=== PATIENT | male | born 1940 | race Caucasian/White ===

== ENCOUNTER → 2016-07-26 | Outpatient (CLI) | payer MEDICARE ==
[~2016-07-26] MED LIST: DOCUSATE PO; DOCUSATE SODIU100 M2 PO; KEFTAB500 MG PO; LAXATIVE1 TAB PO; PRILOSEC40 MG PO; [UNRECOGNIZED DRUG - OTHER]
[2016-07-26 15:28] LABS: BUN 24 mg/dl (7-24); CARBON DIOXIDE 28 mmol/L (21-32); CHLORIDE 106 mmol/L (98-107); EST GLOM FILT AFRICAN AMERICAN > 60 ml/min; GLUCOSE 87 mg/dL (65-99); POTASSIUM 4.1 mmol/L (3.5-5.1); SODIUM 142 mmol/L (136-145); URIC ACID 7.1 mg/dL (3.5-7.2)
== END | disposition home or self-care (01) ==
LOC: LAB 14:32
PROVIDERS: Family Medicine
DX: M10.9 Gout, unspecified (principal)

== ENCOUNTER 2016-10-31 16:42 | Emergency (ER) | payer MEDICARE ==
[~2016-10-31] VITALS: Ht 180.3 cm; Wt 97.1 kg
[~2016-10-31 16:42] MED LIST changes: -BACITRACIN 500U30 GM OPH; -KEFLEX500 M1 PO; -LISINOPRIL5 MG PO; -Meclizine25 MG PO
[2016-10-31 17:49] LABS: BASO # 0.1 10*3/uL (0.0-0.1); BASO % 0.7 % (0.0-1.0); EOS # 0.3 10*3/uL (0.0-0.4); EOS % 2.7 % (1.0-4.0); HEMATOCRIT 47.1 % (42.0-52.0); HEMOGLOBIN 15.7 g/dl (14.0-18.0); LYMPH # 1.3 10*3/uL (1.3-4.4); LYMPH % 12.5 % (27.0-41.0); MEAN CELL VOLUME 90.1 fl (80.0-94.0); MEAN CORPUSCULAR HGB CONC 33.3 g/dl (33.0-37.0); MEAN PLATELET VOLUME 9.6 fl (9.6-12.3); MONO # 0.8 10*3/uL (0.1-1.0); MONO % 7.7 % (3.0-9.0); NEUT # 7.9 10*3/uL (2.3-7.9); NEUT % 76.1 % (47.0-73.0); PLATELET COUNT AUTOMATED 274 10*3/uL (130-400); RED BLOOD COUNT 5.23 10*6/uL (4.50-5.90); RED CELL DISTRI WIDTH 13.2 % (0-14.5); WHITE BLOOD COUNT 10.4 10*3/uL (4.8-10.8)
[2016-10-31 18:01] LABS: BUN 17 mg/dl (7-24); CHLORIDE 105 mmol/L (98-107); CREATININE 1.05 mg/dL (0.70-1.30); POTASSIUM 4.3 mmol/L (3.5-5.1); SODIUM 141 mmol/L (136-145)
[2016-10-31] MEDS ORDERED: KEFLEX500 M1 PO (19:20)
[2016-10-31] MEDS ORDERED: LISINOPRIL5 MG PO (19:20)
[2016-10-31] MEDS ORDERED: BACITRACIN 500U30 GM OPH (19:20)
[2016-10-31] MEDS ORDERED: Meclizine25 MG PO (19:20)
== END 2016-10-31 19:24 | disposition home or self-care (01) ==
LOC: ED 16:42
PROVIDERS: Emergency Medicine
DX: R42 Dizziness and giddiness (principal); I10 Essential (primary) hypertension; L97.312 Non-pressure chronic ulcer of right ankle with fat layer exposed; Z98.890 Other specified postprocedural states; Z79.899 Other long term (current) drug therapy; Z88.1 Allergy status to other antibiotic agents; Z96.661 Presence of right artificial ankle joint

== ENCOUNTER → 2016-10-31 | Outpatient (CLI) | payer MEDICARE ==
[~2016-10-31] MED LIST changes: +BACITRACIN 500U30 GM OPH; +KEFLEX500 M1 PO; +LISINOPRIL5 MG PO; +Meclizine25 MG PO
== END | disposition home or self-care (01) ==
LOC: LAB 16:46
DX: L97.319 Non-pressure chronic ulcer of right ankle with unspecified severity (principal)

== ENCOUNTER → 2016-11-01 | Outpatient (CLI) | payer MEDICARE ==
[~2016-11-01] MED LIST changes: +BACITRACIN 500U30 GM OPH; +KEFLEX500 M1 PO; +LISINOPRIL5 MG PO; +Meclizine25 MG PO
== END | disposition home or self-care (01) ==
LOC: US 11:20
DX: R09.89 Other specified symptoms and signs involving the circulatory and respiratory systems (principal); L89.90 Pressure ulcer of unspecified site, unspecified stage

== ENCOUNTER → 2016-11-06 | Outpatient (CLI) | payer MEDICARE ==
--- NOTE | ~2016-11-06 | PR ---
[place], [place] PROGRESS NOTE NAME: PRADEEP HERNANDEZ [facility] #: [id number] UNIT #: [id number] ROOM: DOCTOR: NABIL RojasBEVERLY BIRTHDATE: [birth year] DOS: 11/06/2016 CHIEF COMPLAINT: Nonhealing wound of the right ankle. HISTORY OF PRESENT ILLNESS: This is a 76-year-old male who was referred to us from the Emergency Room Department for nonhealing ulcers of his ankles. Apparently, he has had these wounds located. There are three wounds that have been present for at least 6 weeks, possibly more that are located on the medial ankle and lateral ankle and there is one starting right on the dorsal aspect of the ankle. They just came up on their own that were not associated with any kind of trauma that he is aware of. He does have a history of ankle surgery. He has had two ankle surgeries done, most recently was seen by Dr. Garibay who did the second surgery, and per Dr. Garibay, the orthopedic part of the surgery is good and he did not have any reason from his standpoint that there would be wounds there on the ankle area. He did have a workup that included an arterial Doppler that was done which did show an occlusion of the dorsalis pedis artery in the dorsum of the right foot with some flow demonstrated in the anterior tibial artery more approximately; however, there was other than that, there was no other occlusions noted on the arterial Doppler. He does have a vascular appointment set up with Dr. Lee 11/15/2016 I believe to further work this issue up. He also was treated empirically in the Emergency Room Department with Keflex. He did say that he had noticed some redness around these wounds and he states since the antibiotics have been started, the redness is decreased and the wounds do appear to be a little bit smaller. He also has been using Bacitracin for the wounds at the present time. His workup in the Emergency Room included an ankle x-ray which showed postsurgical changes in the ankle with no evidence of an acute fracture or dislocation, vascular calcifications were noted. There was a small plantar calcaneal spur noted as well. He did have a culture done, which was skin frances. PAST MEDICAL HISTORY: Significant for hypertension, which apparently is uncontrolled. He has never had any problems with nonhealing ulcers before, he is not diabetic. He has had a history of dizziness. Right ankle surgery in 2014 with revision: Infection in 2012 and bilateral hand surgery. He does not have any cardiac history that he is aware of. No history of heart failure or emphysema and no history of MA that he is aware of. FAMILY HISTORY: Significant for cancer in the mother and father, lung disease in his father. SOCIAL HISTORY: He is a former smoker. He quit 15 years ago, but had smoked for possibly up to 30 years, more than a pack a day. He is . He drinks wine on rare occasions. No history of drug abuse. ALLERGIES: To ciprofloxacin. MEDICATIONS: That he is on are as follows, meclizine 25 p.o. t.i.d. p.r.n. for dizziness, Lisinopril 5 mg p.o. daily. He is completing a course of Keflex 500 t.i.d. for 10 days and he is on bacitracin ointment for his wounds. [place], [place] PROGRESS NOTE NAME: PRADEEP HERNANDEZ UNIT #: [id number] ROOM: DOCTOR: BEVERLY FERRER M.D. BIRTHDATE: [birth year] REVIEW OF SYSTEMS: He denies any chest pain, shortness of breath, problems with the antibiotics, nausea or vomiting, diarrhea, abdominal pain. He states the wounds really do not cause discomfort at this time even when they are dressed. He is not complaining of any discomfort or pain. He does not think the rubbing against anything. There is really no drainage. He is able to walk on his ankle and move his ankle about. No chest pain or shortness of breath is noted. No fevers or chills are noted. PHYSICAL EXAMINATION: VITAL SIGNS: Temperature is 97.8, pulse is 62, respirations 16, blood pressure is 118/72. GENERAL: This is a well-developed, well-nourished male in no acute distress, who appears younger than his stated age. HEENT: Normocephalic, atraumatic. Extraocular movements are intact. Sclerae are anicteric. Oropharynx is clear. NECK: Supple. LUNGS: Clear to auscultation bilaterally. CARDIOVASCULAR: S1, S2. Regular rate and rhythm. ABDOMEN: Soft and nontender. EXTREMITIES: He has trace edema of the right ankle. There is no calf tenderness. I am unable to really palpate a pulse on the right lower extremity on the foot or dorsalis pedis and posterior tibial are difficult to feel. Left pedal pulses are palpable. Toes are slightly cool. Capillary refill is less than 3 seconds. He did have an ABDIAZIZ done today, which shows a critical ABDIAZIZ of 0.25 on the right side and 0.4 on the left. He does have 2 actual open area, one is on the right lateral ankle and it is measuring 0.7 x 0.9 x 0.2. There is really no overt necrotic tissue. The wound edges are slightly thickened and fibrotic. The medial wound is measuring 0.9 x 0.5 x 0.2 and there is no overt necrotic tissue that is really not painful or tender to touch and there wound base is actually pretty dry and knees are fairly circular in nature. There is an area on the dorsal aspect of the ankle, which is along a previous surgical scar and is measuring 0.1 x 0.1 x 0.1. It is not actually overtly open but it does look to be at risk for breakdown. No debridement was done today. The patient did have lab work done while he was in the Emergency Room Department, which shows a glucose of 96, BUN of 17 and creatinine of 1.05. Sodium 141, potassium 4.3, bicarbonate was 26. White count is 10.4, hemoglobin is 15 and platelets are 274. 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 The patient is going to go and see Dr. Lee for further workup, so we will wait until he is seen Dr. Lee for further management. At this time, I would like to use collagen for now. No aggressive debridement until further vascular workup is completed and use collagen for the 2 open areas, and for the area that looks to be at risk, I would like just to use Betadine and keep it covered with a dry dressing and protected, also I do not believe if this has anything to do with the previous ankle surgery; however, due to the chronicity, no open wounds that he is for several weeks now. I would like to go ahead and get a bone scan to evaluate for any possible osteomyelitis if that has been ordered. Followup is in one week. [place], [place] PROGRESS NOTE NAME: PRADEEP HERNANDEZ UNIT #: [id number] ROOM: DOCTOR: BEVERLY FERRER M.D. BIRTHDATE: [birth year] BEVERLY FERRER MD CM:JUANA [phone] BEVERLY FERRER M.D. 11/07/16 0119 interface
== END | disposition home or self-care (01) ==
LOC: WOUNDCARE 03:44
DX: L97.312 Non-pressure chronic ulcer of right ankle with fat layer exposed (principal); I73.9 Peripheral vascular disease, unspecified; I10 Essential (primary) hypertension; Z87.891 Personal history of nicotine dependence; Z72.89 Other problems related to lifestyle

== ENCOUNTER → 2016-11-08 | Outpatient (CLI) | payer MEDICARE | END | disposition home or self-care (01) | LOC: NM 00:16 | DX: L97.909 Non-pressure chronic ulcer of unspecified part of unspecified lower leg with unspecified severity (principal); M86.9 Osteomyelitis, unspecified ==

== ENCOUNTER → 2016-11-13 | Outpatient (CLI) | payer MEDICARE ==
--- NOTE | ~2016-11-13 | PR ---
[place], [place] PROGRESS NOTE NAME: PRADEEP HERNANDEZ [facility] #: [id number] UNIT #: [id number] ROOM: DOCTOR: NABIL RojasBEVERLY BIRTHDATE: [birth year] DOS: 11/13/2016 CHIEF COMPLAINT: Multiple wounds of the right ankle. HISTORY OF PRESENT ILLNESS: This is a 76-year-old gentleman who was seen for the first time in the Wound Clinic last week with open ulcers of the right ankle. They have been present for approximately 7 weeks now. They are all located on the medial ankle and the lateral ankle. The patient has had a history of a complicated ankle surgery. Apparently at least four surgical procedures were done by Dr. Garibay. The last one being in 2013. So he has not had any recent surgical interventions done of the right ankle. In any case, he also had a workup done that included an ultrasound which shows no flow in the dorsalis pedis artery in the dorsum of the right foot, with flow demonstrated in the anterior tibial artery in our clinic was 0.25 on the right side and 0.4 on the left. Last week, when we saw him, the wounds appeared fairly clean and there were two open areas with some depth still and one just starting to open up on the medial dorsum of the foot near the surgical scar and we had recommended a collagen dressing for the two open areas and to keep the medial part of the ankle dry with Betadine. He did undergo a bone scan which essentially was nonspecific. It did show increased uptake in all 3 phases of the lateral aspect of the bone-prosthetic interface of the right talar dome multiple etiologies were suggested per Radiology notes and they had recommended to try considering a tagged WBC scan with combination of bone marrow scan to minimize false positive, but the patient comes in today without any specific complaints. No pain, no fever, no chills, minimal drainage. He is able to walk on the ankle. He has not had any new complaints regarding the wound. OBJECTIVE: VITAL SIGNS: Shows a temperature of 98.1, pulse of 60, respirations 18, blood pressure is 126/60. The wound on his right lateral ankle is measuring bigger at 1 x 1.1 x 0.2, but however now there is a moderate amount of fibrin slough present in the base of the wound where it was not really noted last time the medial dorsum of the foot area is still closed, but appears to be at risk of opening and 0.1 x 0.1 x 0.1. The lateral aspect of the wound is measuring 0.9 x 0.8 x 0.2, filled with fibrin and slough. The right medial wound is measuring 1 x 1.1 x 0.2. Due to the presence of devitalized tissue, a selective debridement was done just to remove the fibrin slough. Minimal debridement only. Forceps and scissors were utilized. There was really no bleeding. The patient tolerated the procedure well. The patient denied any pain with the procedure. Cetacaine spray was used for topical anesthesia. Post-debridement measurements are unchanged. This is the right medial and right lateral lower leg wound. They are a little bit larger with the wound on the right lateral leg, which is measuring 1 x 0.9 x 0.2 post-debridement. ASSESSMENT AND PLAN: Open wounds of the right ankle in a patient with vascular disease, likely these are arterial insufficiency ulcerations. Right now, I would like to switch to Santyl and a foam dressing. He did not like the gauze as it slipped around on his foot. So we will use the foam and also would like Maxorb to keep it dry. There was a little bit of maceration around the cheryle-wound noted. So, we will use Maxorb as well for the central wound, which [place], [place] PROGRESS NOTE NAME: PRADEEP HERNANDEZ UNIT #: [id number] ROOM: DOCTOR: BEVERLY FERRER M.D. BIRTHDATE: [birth year] is at risk, but not actually opened yet and I would like to keep it dry with Betadine. We will go ahead and order the scan suggested by Radiology, which was a tagged WBC scan with bone marrow scan to minimize false positive study. So we will go ahead and order that study. In the meantime, the patient has a followup appointment with Dr. Lee in 2 days. Hopefully, we will get further answers regarding his vascular status by then. BEVERLY FERRER MD CM:PNTRANS [id number] BEVERLY FERRER M.D. 11/15/16 1313 interface
== END | disposition home or self-care (01) ==
LOC: WOUNDCARE 03:13
DX: L97.312 Non-pressure chronic ulcer of right ankle with fat layer exposed (principal); I73.9 Peripheral vascular disease, unspecified

== ENCOUNTER → 2016-11-19 | Outpatient (CLI) | payer MEDICARE ==
--- NOTE | ~2016-11-19 | PR ---
[place], [place] PROGRESS NOTE NAME: PRADEEP HERNANDEZ UNIT #: [id number] ROOM: DOCTOR: NABIL Rojas,BEVERLY BIRTHDATE: [birth year] DOS: 11/20/2016 We did fax the reports Dr. Garibay's office and had informed about this scheduled MRI; however, Dr. Garibay had informed the patient that he has too much hardware in the ankle area and thus should not get the MRI. So, we will go ahead and cancel the MRI and we will reevaluate the patient in the Wound Clinic. He will be seen by another physician the next time he is here for further management. I would also suggest to consider repeating ESR and CRP that week as well. BEVERLY FERRER MD CM:JUANA [phone] BEVERLY FERRER M.D. 11/21/16 0329 interface
--- NOTE | ~2016-11-19 | PR ---
[place], [place] PROGRESS NOTE NAME: PRADEEP HERNANDEZ [facility] #: [id number] UNIT #: [id number] ROOM: DOCTOR: NABIL RojasBEVERLY BIRTHDATE: [birth year] DOS: 11/19/2016 CHIEF COMPLAINT: Followup multiple wounds of the right ankle. HISTORY OF PRESENT ILLNESS: A 76-year-old gentleman with a history of peripheral vascular disease, was seen in the Wound Clinic 2 times now for open ulcers of the medial and lateral ankle and one starting on the central part of the ankle. He unfortunately was to be scheduled to see Dr. Lee last week. Unfortunately, that was canceled per Dr. Lee's office and he has rescheduled to see him this week on the , which would be tomorrow. He is also undergoing a workup for possible osteomyelitis. The patient has had multiple ankle procedures done by Dr. Garibay and the imaging study is still have not been read. He had a very low ABDIAZIZ when he came in to our clinic of 0.25. Due to the obvious fibrin slough present in the base of the wound, Santyl has been ordered. Initially, we had tried collagen but that was switched right away to Santyl when necrotic tissue started to be noted. The patient comes in today without any specific complaints. There is very little drainage. He is using the Santyl and a foam dressing. There is no pain, fevers or chills. OBJECTIVE: VITAL SIGNS: Stable. Temperature is 97.9, pulse of 60, respirations 18, blood pressure is 144/80. SKIN: The wound is measuring 0.8 x 1.2 x 0.2 that is the lateral wound and there is still some fibrin slough present in the base of the wound, a fair amount actually. There is no surrounding cellulitis or purulence noted. No tenderness at all. The midline wound remains closed 0.1 x 0.1 x 0.1. The medial wound is slightly bigger at 1 x 0.8 x 0.2. There is still a moderate amount of fibrin slough present. A selective debridement was done of both the medial and lateral wound, just to remove devitalized tissue only, fibrin and slough. There was no bleeding. A curette was utilized. Post-debridement measurements are unchanged. The patient tolerated the procedure well. Cetacaine spray was used for topical anesthesia. ASSESSMENT AND PLAN: Likely vascular ulceration of the right ankle. We will continue with collagenase for now and a foam dressing. Have him follow up in Wound Clinic next week and also follow up the imaging studies to further evaluate for any possible deep-seated infection. The patient is going to be seen by Vascular tomorrow. Hopefully, a vascular intervention can be done to improve the flow to the area. ADDENDUM We did get the results of the tagged WBC scan. The order was written exactly as how Radiology had recommended, which was to do a combination of a tagged WBC and bone marrow scan with sulfur colloid to minimize false positive study. This was written exactly as per the recommendations of Radiology; however, this was not done. I don't know why that was. In any case, the report is still somewhat nonspecific. The presence of activity was noted in the same location as activity on the bone scan study on the lateral aspect of the bone prosthesis interface of the right talar dome. There was some concern of osteomyelitis, but [place], [place] PROGRESS NOTE NAME: MAIKELDEANNAVirgilioPRADEEP A UNIT #: [id number] ROOM: DOCTOR: BEVERLY FERRER M.D. BIRTHDATE: [birth year] it was a limited study per Radiology. I went to discuss this with the radiologist today, and he mentioned that he would go ahead and consider an MRI scan with contrast. He thinks that would be able to give us more information. So, I will go ahead and order that test which is to be hopefully done within the next few days. I did speak with the patient regarding the test results and recommended to go ahead and schedule the MRI study. Also, I did recommend for him to follow up with Dr. Garibay as well. I will request that our nuclear studies be sent over to Dr. Garibay's office. BEVERLY FERRER MD CM:PNTRANS [phone] BEVERLY FERRER M.D. 11/21/16 1542 interface
== END | disposition home or self-care (01) ==
LOC: WOUNDCARE 01:49
DX: L97.312 Non-pressure chronic ulcer of right ankle with fat layer exposed (principal); I73.9 Peripheral vascular disease, unspecified

== ENCOUNTER 2016-12-02 10:26 | Inpatient (IN) | payer MEDICARE ==
[~2016-12-02] VITALS: Ht 180.3 cm; Wt 93.9 kg
--- NOTE | ~2016-12-02 | PR ---
[place], [place] PROGRESS NOTE NAME: PRADEEP HERNANDEZ [facility] #: [id number] UNIT #: [id number] ROOM: 520 DOCTOR: GEORGI BURGOSNIESHA BIRTHDATE: [birth year] DOS: 12/03/2016 SUBJECTIVE: The patient is seen today for followup of not healing ulcerations on the anterior aspect of his right ankle. He was admitted yesterday. He states that it is looking a little better. He still has pain in the area, but it is mildly improved. He denies fever, chills, nausea, vomiting or night sweats. He did have an MRI done as well as venous and arterial studies. Again, the patient has seen Dr. Lee in the past and he was told that he had significant stenosis. OBJECTIVE: Upon lower extremity physical examination, DP pedal pulses are faintly palpable bilaterally. PT pedal pulses are nonpalpable on the right and faintly palpable on the left. Decreased hair growth is noted. There is edema noted right lower extremity around the ankle. There is a line drawn where the erythema was previously located and this appears to have decreased. I cannot express any drainage from the wounds that are present on the anterior lateral and medial side of the ankle. There is some tracking noted, proximally. There is malodor. There is pain noted to palpation and range of motion in the area. No fluctuance is seen at this time and again, minimal erythema is present at this time. There is increased temperature surrounding the ankle joint. His MRI of the right ankle showed ulceration predominantly along the anterior lateral aspect of the tibiotalar joint with evidence of cellulitis. No definitive drainable abscess or fluid collection. It is a limited evaluation for osteomyelitis at the level of the ankle due to artifact. No definitive evidence of acute osteomyelitis identified. His arterial studies were read as no significant peripheral vascular disease identified. Triphasic and biphasic waveforms noted throughout the lower extremities, but they did not do the right foot because it was bandaged. ASSESSMENT: Cellulitis and infection, right ankle; history of ankle implant; peripheral arterial disease; possible osteomyelitis. PLAN: Evaluation and management. Dressing is changed. Reviewed the MRI and vascular studies. I will discuss the case with Dr. Sexton to see if he wants to proceed with the debridement of the area. The patient is afebrile at this time and has no signs of significant abscess clinically, but it is concerning for an infection in the ankle joint because of the recent history as well as the low-grade fever and increased temperature around the ankle joint. We will discuss the case with him and proceed accordingly. [place], [place] PROGRESS NOTE NAME: PRADEEP HERNANDEZ UNIT #: [id number] ROOM: [facility] DOCTOR: NIESHA LAUREANO DPM BIRTHDATE: [birth year] NIESHA LAUREANO DPM CM:JUANA [phone] NIESHA LAUREANO DPM 12/03/16 1356 interface
--- NOTE | ~2016-12-02 | CON ---
[place], [place] REPORT OF CONSULTATION NAME: PRADEEP HERNANDEZ UNIT #: [id number] ROOM: 520 DOCTOR: AUBREY WEST PRIYA BIRTHDATE: [birth year] DOS: 12/02/2016 CHIEF COMPLAINT: Open ulcerations, right ankle. HISTORY OF PRESENT ILLNESS: This is a 76-year-old male who presents with nonhealing ulcerations to the anterior aspect of his right ankle for the past few months. He states that the pain had gotten significantly worse on last . He denies taking any antibiotics for his right ankle prior to surgery. He denies being on any IV antibiotics before or in the past. He has a history of two ankle replacements by Dr. Grossman; most recent one was performed in 2013. 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 He has seen Dr. Lee as outpatient and was to obtain an MRI of his right ankle prior to vascular intervention. At this time, the patient relates the pain. He denies any chest pain, shortness of breath, nausea, vomiting, diarrhea at this time. The patient has been treating his wounds for the [facility] Santyl and dry sterile dressing. He states that his right ankle was stable up until 4 days ago. He has no other pedal complaints at this time. PAST MEDICAL HISTORY: Colon cancer, GERD, PVD. PAST SURGICAL HISTORY: History of colon resection, ankle joint replacement x 2. SOCIAL HISTORY: Admits to past tobacco use about 15 years ago. No illicit drug use. Admits to social alcohol use. FAMILY HISTORY: Father at age of 72 from lung cancer. Mother at age 91 from stomach cancer. ALLERGIES: CIPROFLOXACIN. MEDICATIONS: Please see MAR for current list of medications. REVIEW OF SYSTEMS: GENERAL: Admits to fevers. Denies chills, nausea, vomiting, weight loss or weight gain. HEENT: Denies vision changes, hearing loss, nasal discharge, ear discharge, eye pain. Admits to wearing glasses. CARDIOVASCULAR: Denies chest pain, palpitations or diaphoresis. RESPIRATORY: Denies shortness of breath, cough, hemoptysis or wheezing. ABDOMINAL: Denies abdominal pain, nausea, vomiting, diarrhea or constipation. GENITOURINARY: Denies dysuria, hematuria or increased frequency or urgency. NEUROLOGIC: Denies decreased sensation to bilateral lower extremities. Denies confusion. PSYCHIATRIC: Denies depression, anxiety or substance abuse. ENDOCRINE: Denies polydipsia, heat intolerance or cold intolerance. DERMATOLOGIC: Admits to 2 ulcers to the anterior aspect of the right ankle. PHYSICAL EXAMINATION: [place], [place] REPORT OF CONSULTATION NAME: PRADEEP HERNANDEZ UNIT #: [id number] ROOM: [facility]– [place][note 2] DOCTOR: AUBREY WEST PRIYA BIRTHDATE: [birth year] VITAL SIGNS: Respiratory rate 18, pulse 74, blood pressure 128/54, pulse ox 98. GENERAL APPEARANCE: A and O x 3. LABORATORY DATA: White count 17.1, hemoglobin 12.9, hematocrit 39.2, platelets 269. FOCUSED PODIATRIC LOWER EXTREMITY EXAMINATION: VASCULAR: DP pulses are faintly palpable to the left and nonpalpable to the right. PT pulses are nonpalpable to the right and faintly palpable to the left. Decreased hair growth noted bilateral lower extremities. There is +2 pitting edema noted to the right lower extremity. There is increased erythema, calor, edema noted to the right lower extremity that is ascending about 2 cm proximally and distally. NEUROLOGIC: Protective sensation intact to the digits bilateral. Normal muscle tone and symmetry noted to bilateral lower extremities. MUSCULOSKELETAL: 5/5 muscle strength noted to left lower extremity. There is significant guarding with the right lower extremity secondary to the pain. There is limited range of motion noted to the right ankle. Decreased range of motion of the ankle joint, subtalar joint and first MTPJ of the left foot. DERMATOLOGIC: There are 2 anterior wounds noted to the ankle. They are located anteromedial and anterolateral. The wound on the medial side measure 2.5 x 1.5 x 0.2 and the anterolateral measures 2.0 x 1.0 x 0.2 cm. The wounds track proximally at the ankle joint. There is malodor and purulent drainage. There are ____ ecchymotic changes noted to both anterior wounds. They are circular in nature ____likely to an arterial cause. The wounds probe down to the ankle capsule. There is no ankle implant exposed. There is no probe to bone at this time. There was about 2 mL of seropurulent drainage expressed from the anteromedial and anterior lateral sites at this time. There is significant pain with compression. There is pain with range of motion to ankle joint as well. The patient also experiences significant pain to the heel and the posterior aspect of the Achilles tendon. ASSESSMENT: 1. 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 2. Deep space abscess, right ankle joint. 3. Leukocytosis. 4. Peripheral vascular disease. TREATMENT PLAN: 1. The patient was seen and examined. 2. Wounds dressed with Betadine dry sterile dressing. 3. Ordered right ankle x-rays. 4. Followup on MRI tomorrow. 5. Followup on vascular studies tomorrow. 6. Continue antibiotics per Infectious Disease. 7. Likely we will plan for surgical intervention on Saturday pending on MRI results and clinical symptoms. 8. Recommend Vascular Surgery consult. 9. We will continue to follow. [place], [place] REPORT OF CONSULTATION NAME: DAVIDPRADEEP Leyla UNIT #: [id number] ROOM: [facility]– [place][note 2] DOCTOR: AUBREY WEST PRIYA BIRTHDATE: [birth year] 10. Nonweightbearing to the right lower extremity. 11. Discussed with Dr. Sexton who agrees with above assessment and plan. ELHAM WEST DPM CM:CONSTR:REPORT OF CONSULTATION 1727 12/02/16 [id number] interface
[2016-12-02 10:30] VITALS: BP 110/69
[2016-12-02 11:05] LABS: BASO # 0.1 10*3/uL (0.0-0.1); BASO % 0.3 % (0.0-1.0); HEMATOCRIT 39.2 % (42.0-52.0); HEMOGLOBIN 12.9 g/dl (14.0-18.0); LYMPH # 0.8 10*3/uL (1.3-4.4); LYMPH % 4.5 % (27.0-41.0); MEAN CELL VOLUME 90.1 fl (80.0-94.0); MEAN CORPUSCULAR HGB 29.7 pg (27.0-31.0); MEAN CORPUSCULAR HGB CONC 32.9 g/dl (33.0-37.0); MEAN PLATELET VOLUME 9.5 fl (9.6-12.3); MONO # 1.2 10*3/uL (0.1-1.0); MONO % 7.2 % (3.0-9.0); NEUT % 87.7 % (47.0-73.0); PLATELET COUNT AUTOMATED 269 10*3/uL (130-400); RED BLOOD COUNT 4.35 10*6/uL (4.50-5.90); WHITE BLOOD COUNT 17.1 10*3/uL (4.8-10.8)
[2016-12-02 11:17] LABS: BUN 20 mg/dl (7-24); CHLORIDE 103 mmol/L (98-107); CREATININE 1.22 mg/dL (0.70-1.30); POTASSIUM 4.2 mmol/L (3.5-5.1); SODIUM 138 mmol/L (136-145)
--- NOTE | 2016-12-02 12:00 | NUR ---
PATIENT A&O X 3. TWO ULCERS NOTED TO RIGHT FOOT. PEDAL PULSES PRESENT WITH DOPPLER. PT UNABLE TO BEAR WEIGHT ON ETREMITY. LUNGS CLEAR BILATERALLY ANT AND POST. C/O SLIGHT HEADACHE AT THIS TIME. NO DRAINGE FROM WOUND ON RLE. ERYTHEMA AND SWELLING NOTED TO RLE.
[2016-12-02 12:08] VITALS: BP 128/54
[2016-12-02] MEDS ORDERED: VITAMIN D5000 UNIT PO (12:23)
--- NOTE | 2016-12-02 12:37 | NUR ---
ZOSYN ENDED AT THIS TIME AND IV LINED FLUSHED PRIOR TO VANCO ADMINISTRATED
--- NOTE | 2016-12-02 13:15 | NUR ---
A 76, admitted to 5E, under the services of GIOVANNA Kirk DO with a diagnosis of INFECTED ULCERS OF RIGHT ANKLE, SEPSIS, CELLULITIS RIGHT FOOT. Chief complaint is OPEN ULCERS, PAIN, UNABLE TO AMBULATE. Patient arrived via bed from ER. Monitor applied. Initial assessment completed. Vital signs taken and recorded. GIOVANNA KIRK DO notified of admission to the unit. Orders received. See assessment for past medical history, medications and allergies. Patient and/or family oriented to unit. [facility] visitation policy reviewed. Clothing/patient valuable form completed. AXEL TAN
[2016-12-02 13:30] VITALS: BP 138/62
--- NOTE | 2016-12-02 13:46 | NUR ---
DR FIORE AND DR. NINO'S ANSWERING SERVICES NOTIFIED OF CONSULTS.
--- NOTE | 2016-12-02 13:53 | NUR ---
PT MEDICATED WITH PRN MORPHINE FOR C/O PAIN FROM ULCERS OF RIGHT ANKLE. PT RATES PAIN 9 3/4 OUT OF 10. WILL CONTINUE TO MONITOR.
[2016-12-02 16:00] VITALS: BP 134/60
--- NOTE | 2016-12-02 18:51 | NUR ---
ONE TIME DOSE OF IV GILAUDID GIVEN TO PATIENT AFTER DR. WEST WAS TO THE FLOOR AND CLEANED AND DRESSED THE WOUNDS TO THE PATIENT'S RIGHT ANKLE. MEDICATION EFFECTIVE.
[2016-12-02 20:00] VITALS: BP 138/72
[2016-12-03] VITALS: BP 137/70
--- NOTE | 2016-12-03 00:09 | NUR ---
Medicated with Tylenol po prn headache. Will monitor effectiveness. Call light within reach.
--- NOTE | 2016-12-03 00:39 | NUR ---
24 HR chart check completed.
--- NOTE | 2016-12-03 02:57 | NUR ---
Called and notified Dr. Correia regarding critical blood culture. New orders received.
[2016-12-03 04:26] LABS: BASO % 0.4 % (0.0-1.0); HEMATOCRIT 39.6 % (42.0-52.0); HEMOGLOBIN 12.7 g/dl (14.0-18.0); LYMPH % 10.2 % (27.0-41.0); MEAN CELL VOLUME 91.9 fl (80.0-94.0); MEAN CORPUSCULAR HGB 29.5 pg (27.0-31.0); MEAN CORPUSCULAR HGB CONC 32.1 g/dl (33.0-37.0); MEAN PLATELET VOLUME 9.2 fl (9.6-12.3); MONO # 0.7 10*3/uL (0.1-1.0); MONO % 7.3 % (3.0-9.0); NEUT # 7.8 10*3/uL (2.3-7.9); NEUT % 81.4 % (47.0-73.0); PLATELET COUNT AUTOMATED 216 10*3/uL (130-400); RED BLOOD COUNT 4.31 10*6/uL (4.50-5.90); RED CELL DISTRI WIDTH 13.2 % (0-14.5); WHITE BLOOD COUNT 9.6 10*3/uL (4.8-10.8)
[2016-12-03 04:38] LABS: ACT PARTIAL THROMBO TIME 30.1 SECONDS (20.8-31.5); INTERNATIONAL NORM RATIO 1.1 (2.0-3.5)
[2016-12-03 04:42] LABS: ALBUMIN 2.7 gm/dl (3.1-4.5); CREATININE 1.43 mg/dL (0.70-1.30); MAGNESIUM 1.9 mg/dL (1.5-2.1); PHOSPHOROUS 3.1 mg/dL (2.5-4.9); TOTAL PROTEIN 6.7 gm/dL (6.4-8.2)
[2016-12-03 04:47] LABS: THYROID STIM HORMONE (HS) 0.863 uIU/ml (0.358-4.75)
--- NOTE | 2016-12-03 05:20 | NUR ---
Medicated with Morphine IV prn for pain in rt leg ulcers rating 9/10. Will monitor effectiveness. Call light within reach.
--- NOTE | 2016-12-03 06:20 | NUR ---
Patient resting quietly in bed with eyes closed. Morphine effective. Will continue to monitor. Call light within reach.
[2016-12-03 08:00] VITALS: BP 142/62
--- NOTE | 2016-12-03 08:25 | NUR ---
PATIENT TO MRI BY WHEELCHAIR.
--- NOTE | 2016-12-03 10:55 | NUR ---
PATIENT COMPLAINING OF PAIN. REFUSING MORPHINE AT THIS TIME. ASKING FOR DILAUDID. NOTIFIED DR NOBLE. WANTS HIM TO TRY MORPHINE ALTERNATING WITH NORCO. PATIENT AGREED.
--- NOTE | 2016-12-03 11:05 | NUR ---
MORPHINE 2MG GIVEN FOR RIGHT FOOT PAIN RATING A 9.5 ON PAINSCALE.
[2016-12-03 12:00] VITALS: BP 136/70
--- NOTE | 2016-12-03 12:00 | NUR ---
NO COMPLAINTS OF PAIN AT THIS TIME. MORPHINE EFFECTIVE.
--- NOTE | 2016-12-03 13:12 | NUR ---
PT REQUESTED AND WAS MEDICATED WITH DILAUDID IV FOR C/O RIGHT FOOT PAIN. CALL LIGHT IN REACH. WILL MONITOR
--- NOTE | 2016-12-03 14:10 | NUR ---
PATIENT SLEEPING. NO SIGNS OF PAIN. DILAUDID EFFECTIVE.
[2016-12-03] MEDS ORDERED: B12,B-12,B 12500 MC1 PO (15:57)
[2016-12-03] MEDS ORDERED: NATURE'S BLEND F1 MG PO (15:57)
[2016-12-03] MEDS ORDERED: VANCO 1.251.25 GM/25 IV (15:57)
[2016-12-03] MEDS ORDERED: Percocet 325 MG1 TAB PO (15:57)
[2016-12-03] MEDS ORDERED: HYDROMORPH0.5 MG/0.5 IV (15:57)
[2016-12-03] MEDS ORDERED: ZOSYN 3.373.375 GM/5 IV (15:57)
[2016-12-03 16:56] VITALS: BP 171/81
--- NOTE | 2016-12-03 17:06 | NUR ---
DILAUDID 0.5MG IV GIVEN PER PATIENT REQUEST FOR RIGHT ANKLE PAIN.
--- NOTE | 2016-12-03 17:49 | NUR ---
DILAUDID EFFECTIVE PER PATIENT.
--- NOTE | 2016-12-03 18:50 | NUR ---
NURSE TO NURSE REPORT GIVEN TO [facility].
--- NOTE | 2016-12-03 19:00 | NUR ---
DISCHARGED TO [facility]IA [facility].
== END 2016-12-03 19:00 | disposition short-term general hospital (02) | DRG 871 ==
LOC: ED 10:26 → EDHOLD 11:57 → 5E 11:57
PROVIDERS: Emergency Medicine; Family Medicine; ADMIT Internal Medicine
DX: A41.9 Sepsis, unspecified organism (principal); N17.0 Acute kidney failure with tubular necrosis; E43 Unspecified severe protein-calorie malnutrition; L03.115 Cellulitis of right lower limb; M86.8X6 Other osteomyelitis, lower leg; L02.415 Cutaneous abscess of right lower limb; D64.9 Anemia, unspecified; I10 Essential (primary) hypertension; L98.494 Non-pressure chronic ulcer of skin of other sites with necrosis of bone; R73.9 Hyperglycemia, unspecified; K21.9 Gastro-esophageal reflux disease without esophagitis; E55.9 Vitamin D deficiency, unspecified; I73.9 Peripheral vascular disease, unspecified; E53.8 Deficiency of other specified B group vitamins; Z96.669 Presence of unspecified artificial ankle joint; Z88.8 Allergy status to other drugs, medicaments and biological substances; Z79.899 Other long term (current) drug therapy; Z85.038 Personal history of other malignant neoplasm of large intestine; Z87.891 Personal history of nicotine dependence; Z80.1 Family history of malignant neoplasm of trachea, bronchus and lung; Z80.0 Family history of malignant neoplasm of digestive organs; Z68.28 Body mass index [BMI] 28.0-28.9, adult

== ENCOUNTER 2017-05-21 17:05 | Emergency (ER) | payer MEDICARE ==
[~2017-05-21 17:05] MED LIST changes: +B12,B-12,B 12500 MC1 PO; +HYDROMORPH0.5 MG/0.5 IV; +NATURE'S BLEND F1 MG PO; +Percocet 325 MG1 TAB PO; +VANCO 1.251.25 GM/25 IV; +VITAMIN D5000 UNIT PO; +ZOSYN 3.373.375 GM/5 IV
== END 2017-05-21 17:21 | disposition expired ==
LOC: ED 17:05
DX: I46.9 Cardiac arrest, cause unspecified (principal); K21.9 Gastro-esophageal reflux disease without esophagitis; I10 Essential (primary) hypertension; M86.8X7 Other osteomyelitis, ankle and foot; Z88.1 Allergy status to other antibiotic agents; Z79.899 Other long term (current) drug therapy; Z87.891 Personal history of nicotine dependence